=== PATIENT | female | born 1945 | race Caucasian/White ===

== ENCOUNTER 2020-06-24 20:44 | Emergency (ER) | payer MEDICARE, OTHER ==
[~2020-06-24] VITALS: Ht 162.6 cm; Wt 71.7 kg
[2020-06-24] MEDS ORDERED: KETOROLAC TROMETHAMINE 15 MG/ML VIAL ONE (21:16)
--- NOTE | 2020-06-24 21:26 | NUR ---
PATIENT CAME TO ER BED 16 C/O ABDOMINAL PAIN SINCE 2x DAYS AGO. PATIENT IS AAOX4. NOS OB. BREATHING EVENLY AND UNLABORED ON ROOM AIR. CONNECTED TO THE MONTIOR.
[2020-06-24 21:27] LABS: BASOPHILS % (AUTO) 0.5 % (0.0-2.0); EOSINOPHILS % (AUTO) 0.7 % (0.0-6.0); HEMATOCRIT 42 % (33-45); LYMPHOCYTES # (AUTO) 2.3 /CMM (0.8-4.8); LYMPHOCYTES % (AUTO) 30.6 % (20.0-44.0); MEAN CORPUSCULAR HGB CONC 34 g/dl (31.0-36.0); MEAN CORPUSCULAR VOLUME 92 fL (82-100); MONOCYTES # (AUTO) 0.6 /CMM (0.1-1.30); MONOCYTES % (AUTO) 7.9 % (2.0-12.0); NEUTROPHILS # (AUTO) 4.6 /CMM (1.8-8.9); NEUTROPHILS % (AUTO) 60.3 % (43.0-81.0); PLATELET COUNT (AUTO) 250 /CMM (150-450); RED BLOOD CELL COUNT(AUTO) 4.51 MIL/uL (4.0-5.2); WHITE BLOOD COUNT (AUTO) 7.6 K/uL (4.3-11.0)
[2020-06-24] MEDS ORDERED: IV NS 0.9% 500 ML BAG IV ONE (21:30)
[2020-06-24] MEDS ORDERED: KETOROLAC TROMETHAMINE INJ 30 MG/ML VIAL IV ONE (21:30)
[2020-06-24 21:41] LABS: ALANINE AMINOTRANSFERASE 19 U/L (12-78); ALBUMIN 3.6 g/dL (3.4-5.0); ALKALINE PHOSPHATASE 82 U/L (46-116); ASPARTATE AMINOTRANSFERASE 13 U/L (15-37); BILIRUBIN,DIRECT 0.1 mg/dL (0.0-0.2); BILIRUBIN,TOTAL 0.2 mg/dL (0.2-1.0); CALCIUM, SERUM 9.2 mg/dL (8.5-10.1); CARBON DIOXIDE 33 mmol/L (21-32); CHLORIDE 103 mmol/L (98-107); CREATININE 0.9 mg/dL (0.6-1.3); GLUCOSE 94 mg/dL (74-106); LIPASE 117 U/L (73-393); SODIUM SERUM 143 mmol/L (136-145); TOTAL PROTEIN, SERUM 7.2 g/dL (6.4-8.2); UREA NITROGEN, BLOOD 21 mg/dL (7-18)
[2020-06-24] MEDS ORDERED: NAPR-1009 PO (21:49)
[2020-06-24] MEDS ORDERED: IOHEXOL-350 100 ML VIAL IV ONE (22:10)
--- NOTE | 2020-06-24 23:09 | NUR ---
IV removed. Catheter intact and site benign. Pressure and 4x4 applied to site. No bleeding noted.
[2020-06-24 23:10] VITALS: BP 123/71
--- NOTE | 2020-06-24 23:10 | NUR ---
Patient discharged to home in stable condition. Written and verbal after care instructions given. Patient verbalizes understanding of instruction.
== END 2020-06-24 23:10 | disposition home or self-care (01) ==
LOC: ER 20:44
DX: R07.89 Other chest pain (principal)
CPT/HCPCS: 36415; 71275; 80048; 80076; 83690; 84484; 85025; 85730; 93005 ×2; 96374; 99285; J1885; Q9967

== ENCOUNTER 2021-06-20 19:49 | Inpatient (IN) | payer MEDICARE, OTHER ==
[~2021-06-20] VITALS: Ht 165.1 cm; Wt 66.2 kg
[~2021-06-20 19:49] MED LIST: NAPR-1009 PO
--- NOTE | 2021-06-20 20:10 | NUR ---
C/O SOB, WEAKNESS, N/V X3DAYS. PATIENT ALERT AND ORIENTED X3. AMBULATORY AND IN BED 08 ON MONITOR AN POX AWAITING MD LAND.
--- NOTE | 2021-06-20 20:35 | NUR ---
RAC #20G S/L; PATENT AND INTACT
--- NOTE | 2021-06-20 20:37 | NUR ---
BLOOD COLLECTED AND SENT TO LAB
--- NOTE | 2021-06-20 20:49 | NUR ---
COVID SWAB DONE AND SENT TO LAB
[2021-06-20 21:05] LABS: BASOPHILS % (AUTO) 0.2 % (0.0-2.0); EOSINOPHILS % (AUTO) 0.5 % (0.0-6.0); HEMATOCRIT 38 % (33-45); HEMOGLOBIN 12.8 g/dL (11.5-14.8); MEAN CORPUSCULAR HGB CONC 34 g/dl (31.0-36.0); MEAN CORPUSCULAR VOLUME 90 fL (82-100); MONOCYTES # (AUTO) 0.6 K/uL (0.1-1.30); MONOCYTES % (AUTO) 6.4 % (2.0-12.0); NEUTROPHILS # (AUTO) 7.2 K/uL (1.8-8.9); NEUTROPHILS % (AUTO) 72.9 % (43.0-81.0); PLATELET COUNT (AUTO) 218 K/uL (150-450); RED BLOOD CELL COUNT(AUTO) 4.14 MIL/uL (4.0-5.2)
[2021-06-20 21:31] LABS: CALCIUM, SERUM 9.2 mg/dL (8.5-10.1); CARBON DIOXIDE 30 mmol/L (21-32); CHLORIDE 103 mmol/L (98-107); CREATININE 0.7 mg/dL (0.6-1.3); GLUCOSE 93 mg/dL (74-106); POTASSIUM 4.1 mmol/L (3.5-5.1); SODIUM SERUM 140 mmol/L (136-145); UREA NITROGEN, BLOOD 25 mg/dL (7-18)
[2021-06-20 21:36] LABS: ALANINE AMINOTRANSFERASE 33 U/L (12-78); ALBUMIN 3.6 g/dL (3.4-5.0); ALKALINE PHOSPHATASE 71 U/L (46-116); ASPARTATE AMINOTRANSFERASE 17 U/L (15-37); BILIRUBIN,DIRECT 0.1 mg/dL (0.0-0.2); BILIRUBIN,TOTAL 0.3 mg/dL (0.2-1.0); TOTAL PROTEIN, SERUM 6.9 g/dL (6.4-8.2)
--- NOTE | 2021-06-20 21:53 | NUR ---
DR. CY YOUNG SPEAKING TO DR. IRAHETA HOSPITALIST REGARDING ADMISSION
[2021-06-20] MEDS ORDERED: MORPHINE SULFATE INJ 2 MG/ML DISP.SYRIN IV PRN (22:00)
[2021-06-20] MEDS ORDERED: ONDANSETRON HCL/PF 4 MG/2 ML VIAL IVP PRN (22:00)
[2021-06-20] MEDS ORDERED: FUROSEMIDE 20 MG/2 ML VIAL IV SCH (22:00)
[2021-06-20] MEDS: ENOXAPARIN SODIUM 40 MG/0.4 ML DISP.SYRIN SQ SCH (22:00)
[2021-06-20] MEDS ORDERED: hydrALAZINE HCL IV 20 MG VIAL IV PRN (22:00)
[2021-06-20] MEDS ORDERED: ACETAMINOPHEN 325 MG TABLET PO PRN (22:00)
--- NOTE | 2021-06-20 22:46 | NUR ---
ROOM 103 TELE
--- NOTE | 2021-06-20 23:00 | NUR ---
US TECH AT PT'S BEDSIDE
--- NOTE | 2021-06-20 23:03 | NUR ---
REPORT GIVEN TO KHADIJAH PALMA
--- NOTE | 2021-06-20 23:35 | NUR ---
DR. IRAHETA AT PT'S BEDSIDE
--- NOTE | 2021-06-20 23:45 | NUR ---
ANESTHESIOLOGY FACULTY INITIAL NOTE. ADMITTED 76 YR OLD FEMALE FROM ER WITH DX OF HEART FAILURE BY DR. LANG. PT A&OX4 NO SOB, NO DISTRESS OR DISCOMFORT NOTED DENIES PAIN ON TELE MONITOR SR, HR 60. BODY CHECK DONE, NO SKIN ISSUE NOTED. RAC 20G S/L, INTACT AND PATENT. DUE MEDS GIVEN. ADMITTING ORDERS NOTED AND CARRIED OUT ORIENTED PT TO HER ROOM. VSS. SIDE RAILS UP X2, CALL LIGHT WITHIN REACH. CONTINUE TO MONITOR
--- NOTE | 2021-06-20 23:46 | NUR ---
PT TRANFERRED TO [facility] VIA ACLS PROTOCOL. VSS. ALL BELONGINGS WITH PT.
[2021-06-21] VITALS: BP 139/58
[2021-06-21] MEDS: ENOXAPARIN SODIUM 40 MG/0.4 ML DISP.SYRIN SQ SCH (00:09)
--- NOTE | 2021-06-21 00:10 | NUR ---
KILN HEAD HOUSE OPERATOR NOTE PT REFUSED TO GET LOVENOX MED, STATED "MY BLOOD IS ALREADY VERY THIN, AND I DON'T WANT IT MORE THINNER".
[2021-06-21] MEDS ORDERED: ESCI20TA PO (00:29)
[2021-06-21] MEDS ORDERED: ALPR0.25 PO (00:32)
[2021-06-21 04:00] VITALS: BP 106/41
--- NOTE | 2021-06-21 06:25 | NUR ---
COLLEGE PRESIDENT CLOSING NOTE. PT IN BED, AWAKE, REMAINS SR WITH HR 61. APPEARS TO BE COMFORTABLE WITH NO SIGNS OF DISTRESS. NO COMPLAINT OF PAIN NOTED. CALL LIGHT WITHIN REACH, SIDE RAILS UP X2. WILL ENDORSE CARE TO DAYSHIFT NURSE.
--- NOTE | 2021-06-21 07:20 | NUR ---
RN OPENING NOTE RECEIVED PATIENT RESTING IN BED. A/OX 4. IS ABLE TO VERBALIZE NEEDS. PATIENT IS ON ROOM AIR WITH NO CURRENT SINGS OF DISTRESS OR PAIN. PATIENT IS AMBULATORY. WITH IV ACCESS NOTED ON RAC 20g SL. SAFETY MEASURES IN PLACE BED LOCKED IN THE LOWEST POSITION 2 SIDE RAILS UP AND CALL LIGHT WITHIN REACH.
[2021-06-21 07:52] LABS: ALBUMIN 4.1 g/dL (3.4-5.0); BILIRUBIN,TOTAL 0.6 mg/dL (0.2-1.0); CALCIUM, SERUM 9.4 mg/dL (8.5-10.1); CREATININE 0.7 mg/dL (0.6-1.3); MAGNESIUM 2.4 mg/dL (1.8-2.4); PHOSPHORUS 4.6 mg/dL (2.5-4.9); POTASSIUM 3.8 mmol/L (3.5-5.1); TOTAL PROTEIN, SERUM 7.7 g/dL (6.4-8.2)
[2021-06-21 08:00] VITALS: BP 110/47
[2021-06-21 08:14] LABS: BASOPHILS % (AUTO) 0.3 % (0.0-2.0); EOSINOPHILS % (AUTO) 0.4 % (0.0-6.0); HEMATOCRIT 41 % (33-45); LYMPHOCYTES # (AUTO) 2.1 K/uL (0.8-4.8); LYMPHOCYTES % (AUTO) 25.6 % (20.0-44.0); MEAN CORPUSCULAR HGB CONC 34 g/dl (31.0-36.0); MEAN CORPUSCULAR VOLUME 90 fL (82-100); MONOCYTES # (AUTO) 0.5 K/uL (0.1-1.30); MONOCYTES % (AUTO) 6.7 % (2.0-12.0); NEUTROPHILS # (AUTO) 5.4 K/uL (1.8-8.9); PLATELET COUNT (AUTO) 230 K/uL (150-450); RED BLOOD CELL COUNT(AUTO) 4.52 MIL/uL (4.0-5.2); WHITE BLOOD COUNT (AUTO) 8.1 K/uL (4.3-11.0)
[2021-06-21] MEDS ORDERED: ESCITALOPRAM OXALATE (10 MG) 10 MG TABLET PO SCH (10:00)
[2021-06-21] MEDS ORDERED: ALPRAZOLAM 0.25 MG TABLET PO SCH (10:00)
[2021-06-21] MEDS ORDERED: FUROSEMIDE 20 MG/2 ML VIAL IV SCH (10:00)
[2021-06-21 11:07] VITALS: BP_SYST 113; BP_SYST 86; BP_SYST 95; BP_DIAS 57; BP_DIAS 59
--- NOTE | 2021-06-21 11:07 | NUR ---
RN NOTE ORTHOSTATIC BP TAKEN. SUPINE 113/57 HR 70; SITTING 95/59 HR 98; STANDING 86/57 HR 113. PT C/O DIZZINESS AFTER ABOUT 2 MINUTES OF STANDING. Addendum: 06/21/21 at 1216 by ANJANA CALLEJAS RN DISREGARD
[2021-06-21 12:00] VITALS: BP 120/60
[2021-06-21 16:12] VITALS: BP 110/48
--- NOTE | 2021-06-21 18:46 | NUR ---
RN NOTE PATIENT DC IN STABLE CONDITION, PICKED UP BY SON. DISCHARGE INSTRUCTIONS GIVEN, PATIENT VERBALIZED UNDERSTANDING.
== END 2021-06-21 21:02 | disposition home or self-care (01) | DRG 293 ==
LOC: ER 19:52 → TELE1 22:55
PROVIDERS: ADMIT Internal Medicine; ATTEND Nurse Practitioner Acute Care
DX: I50.31 Acute diastolic (congestive) heart failure (principal); F41.9 Anxiety disorder, unspecified; F32.A Depression, unspecified; R93.89 Abnormal findings on diagnostic imaging of other specified body structures; R53.1 Weakness; Z90.49 Acquired absence of other specified parts of digestive tract; Z20.822 Contact with and (suspected) exposure to COVID-19
CPT/HCPCS: 36415; 70450-TC; 71045-TC; 71250-TC; 80048-TC; 80053-TC; 80076-TC; 82378; 83605-TC; 83735-TC; 83880; 84100-TC; 84484-TC; 85025-TC; 85730-TC; 86301; 87040-TC; 87081-TC; 93307-TC; C9803; G0378; J1650; J1940